=== PATIENT | female | born 1985 | race Caucasian/White ===

== ENCOUNTER → 2020-05-23 | Outpatient (CLI) | payer MEDICARE, OTHER ==
[2014-11-17 10:48] VITALS: BP 146/96
[~2020-05-23] MED LIST: DEXT20CA7 PO; HYDR-3165 PO; HYDR50CA2 PO; NITR100C62 PO; OLAN2.5T3 PO
--- NOTE | 2020-05-23 09:52 | RAD ---
Chest radiograph 05/23/2020 8:51 AM INDICATION: Cough COMPARISON: None available TECHNIQUE: Frontal and lateral views of the chest are provided. FINDINGS: The cardiomediastinal silhouette is within normal limits. There are no pleural effusions. There is no pulmonary vascular congestion. There is no pneumothorax. The lungs are clear. No significant osseous abnormality is identified. IMPRESSION: No acute cardiopulmonary process. Electronically signed by: Sharlene Baxter MD (05/23/2020 9:50 AM) [facility]
== END ==
LOC: DXRAD 08:43
PROVIDERS: ATTEND Family Medicine
DX: R05 Cough (principal)
CPT/HCPCS: 71046